=== PATIENT | female | born 1965 | race Caucasian/White ===

== ENCOUNTER 2022-05-21 12:06 | Emergency (ER) | payer OTHER ==
[~2022-05-21] VITALS: Ht 167.6 cm; Wt 72.1 kg
[~2022-05-21 12:06] MED LIST: CELEBREX200 MG PO; DICLOFENAC SOD100 G1 TOP; DILAUDID4 MG PO; ESTRADIOL42.5 GM PV; GABAPENTIN100 MG PO; NAPROSYN500 MG PO; NEXIUM20 MG; PANTOPRAZOLE SO40 MG PO
--- OUTSIDE RECORDS SUMMARY | 2022-05-21 12:08 | XMS ---
PreManage Notification: JENA ORR Security Legal Collector Events No recent Security Events currently on file [facility] CARE PROVIDERS ANTHONY Pied[facility] Current PHONE: Unknown Gaby has no Care Guidelines for this patient. Nathan VISIT COUNT (12 MO.) 2 [facility] TOTAL 2 NOTE: Visits indicate total known visits. ED/UCC VISIT TRACKING (12 MO.) 05/21/2022 12:07 [facility] [place] TYPE: Emergency COMPLAINT: - POSS POST SURGICAL INFECTION 05/01/2022 21:39 [facility] [place] TYPE: Emergency COMPLAINT: - ABD PAIN, VOMITING INPATIENT VISIT TRACKING (12 MO.) 05/01/2022 21:40 [facility] [place] TYPE: Observation COMPLAINT: - ACUTE APPENDICITIS DIAGNOSES: - Allergy status to narcotic agent - Allergy status to penicillin - Contact with and (suspected) exposure to COVID-19 - Unspecified acute appendicitis [email or web address]
== END 2022-05-21 15:16 | disposition left against medical advice (07) ==
LOC: ED 12:06
DX: R10.11 Right upper quadrant pain (principal); R11.0 Nausea; R19.7 Diarrhea, unspecified; Z90.49 Acquired absence of other specified parts of digestive tract; Z53.21 Procedure and treatment not carried out due to patient leaving prior to being seen by health care provider; Z20.822 Contact with and (suspected) exposure to COVID-19
CPT/HCPCS: 87502; U0003

== ENCOUNTER 2024-06-03 06:22 | Emergency (ER) | payer SELFPAY ==
[~2024-06-03] VITALS: Ht 167.6 cm; Wt 80.7 kg
[2024-06-03] MEDS ORDERED: DICLOFENAC SODI50 GM TP (06:31)
[2024-06-03 06:40] LABS: BASOPHILS 2.5 % (0-2); EOSINOPHILS 3.3 % (0-6); HEMATOCRIT 41.8 % (35.0-50.0); HEMOGLOBIN 14.4 g/dL (12.0-18.0); LYMPHOCYTES 33.3 % (24-44); MCH 30.6 (27-36); MCHC 34.4 g/dl (30-36); MONOCYTES 6.7 % (0-12); NEUTROPHILS 54.2 % (39-80); PLATELET COUNT 184 K/uL (140-440); RBC 4.69 M/ul (4.3-5.7); RDW 12.1 (10.5-15.0)
[2024-06-03 06:58] LABS: ALBUMIN 4.2 g/dL (3.4-5.0); ALBUMIN/GLOBULIN RATIO 1.45 (1.1-2.4); ANION GAP 9.7 (7-21); BILIRUBIN, TOTAL 0.6 ng/dL (0.2-1.0); BUN/CREATININE RATIO 20.23 (6.0-28.6); CALCIUM 8.9 mg/dL (8.5-10.1); CREATININE, SERUM 0.84 mg/dL (0.55-1.02); POTASSIUM 3.7 mmol/L (3.5-5.1); PROTEIN, TOTAL 7.1 g/dL (6.4-8.2)
[2024-06-03 07:51] VITALS: BP 133/76
--- NOTE | 2024-06-03 20:36 | EKG ---
[facility] [address] [place] [address] Signed Normal sinus rhythm Normal ECG When compared with ECG of 02-MAY-2022 00:00, No significant change was found Confirmed by Luis Siddiqi DO ([id number]) on 06/03/2024 8:36:27 PM Electronically Signed By: LUIS SIDDIQI DO 06/03/242035 PATIENT NAME: JENA ORR Electrocardiogram DATE OF : 65 PHYSICIAN: LUIS SIDDIQI DO REPORT #: [id number] REPORT IS CONFIDENTIAL AND NOT TO BE RELEASED WITHOUT AUTHORIZATION
== END 2024-06-03 07:50 | disposition home or self-care (01) ==
LOC: ED 06:22
PROVIDERS: Internal Medicine
DX: R07.9 Chest pain, unspecified (principal); K21.9 Gastro-esophageal reflux disease without esophagitis; Z88.5 Allergy status to narcotic agent; Z88.0 Allergy status to penicillin; Z79.899 Other long term (current) drug therapy
CPT/HCPCS: 36415; 71045; 80053; 83735; 84484; 85025; 93005; 93010; 99285-25

== ENCOUNTER 2024-08-06 15:40 | Emergency (ER) | payer OTHER ==
[~2024-08-06] VITALS: Ht 167.6 cm; Wt 82.2 kg
[~2024-08-06 15:40] MED LIST changes: +DICLOFENAC SODI50 GM TP
[2024-08-06] MEDS ORDERED: RESTASIS1 DROP OD (15:51)
[2024-08-06 15:59] LABS: BASOPHILS 0.8 % (0-2); EOSINOPHILS 2.4 % (0-6); HEMATOCRIT 37.8 % (35.0-50.0); HEMOGLOBIN 13.4 g/dL (12.0-18.0); LYMPHOCYTES 29.8 % (24-44); MCHC 35.5 g/dl (30-36); MCV 87.2 fl (81-99); MONOCYTES 5.7 % (0-12); NEUTROPHILS 61.3 % (39-80); PLATELET COUNT 180 K/uL (140-440); RBC 4.33 M/ul (4.3-5.7)
[2024-08-06] MEDS ORDERED: NITROGLYCERIN 0.4 MG SUBL SL PRN (16:00)
[2024-08-06 16:16] LABS: ALBUMIN 4.3 g/dL (3.4-5.0); ALBUMIN/GLOBULIN RATIO 1.65 (1.1-2.4); ANION GAP 9.5 (7-21); BILIRUBIN, TOTAL 0.3 mg/dL (0.2-1.0); BUN/CREATININE RATIO 22.47 (6.0-28.6); CALCIUM 9.5 mg/dL (8.5-10.1); CREATININE, SERUM 0.89 mg/dL (0.55-1.02); MAGNESIUM 2.3 mg/dL (1.8-2.4); POTASSIUM 3.5 mmol/L (3.5-5.1); PROTEIN, TOTAL 6.9 g/dL (6.4-8.2)
[2024-08-06 19:36] VITALS: BP 133/76
--- NOTE | 2024-08-07 19:42 | EKG ---
[facility] [address] [place] [address] Signed Normal sinus rhythm Possible Left atrial enlargement Borderline ECG When compared with ECG of 03-JUN-2024 06:24, No significant change was found Confirmed by Stephen Nunez MD ([id number]) on 08/07/2024 7:42:24 PM Electronically Signed By: STEPHEN NUNEZ MD 08/07/241941 PATIENT NAME: JENA ORR Electrocardiogram DATE OF : 65 PHYSICIAN: STEPHEN NUNEZ MD REPORT #: [id number] REPORT IS CONFIDENTIAL AND NOT TO BE RELEASED WITHOUT AUTHORIZATION
== END 2024-08-06 19:36 | disposition home or self-care (01) ==
LOC: ED 15:40
PROVIDERS: Emergency Medicine
DX: R07.89 Other chest pain (principal); K21.9 Gastro-esophageal reflux disease without esophagitis; Z88.5 Allergy status to narcotic agent; Z88.0 Allergy status to penicillin; Z79.899 Other long term (current) drug therapy
CPT/HCPCS: 36415; 71045; 80053; 83735; 84484; 85025; 93005; 93010; 99285-25